=== PATIENT | male | born 2000 | race Two or more races ===

== ENCOUNTER 2022-01-02 11:52 | Emergency (ER) | payer MEDICAID ==
[~2022-01-02] VITALS: Ht 170.2 cm; Wt 75.0 kg
[2022-01-02 11:54] VITALS: BP 130/66
== END 2022-01-02 14:20 | disposition home or self-care (01) ==
LOC: EMS 12:07
DX: S00.03XA Contusion of scalp, initial encounter (principal); F17.210 Nicotine dependence, cigarettes, uncomplicated; Z98.890 Other specified postprocedural states; W19.XXXA Unspecified fall, initial encounter; Y93.89 Activity, other specified; Y92.89 Other specified places as the place of occurrence of the external cause; Y99.8 Other external cause status
CPT/HCPCS: 99282; Z7502